=== PATIENT | male | born 1955 | race Caucasian/White ===

== ENCOUNTER 2016-12-24 14:21 | Emergency (ER) | payer OTHER ==
--- NOTE | 2016-12-24 14:39 | ED Physician Documentation ---
PD HPI DYSPNEA - Stated complaint Stated Complaint: SOA, L ARM TINGLING,L LEG TINGLING - Chief complaint Chief Complaint: Resp - History obtained from History obtained from: Patient - History of Present Illness Timing - onset: Other (61-year-old smoker with history of CHF, A. fib on warfarin presents with 2 weeks of progressive dyspnea that is worse when lying flat or exerting himself. Says he can only walk a few feet now without becoming dyspneic. Does have a mild cough but denies pedal edema. Among other things is currently taking 100 mg of torsemide a day.) Timing - onset during: Other (Starting last night developed some shooting and tingling pains in his left arm radiating to the left neck. No primary chest pain.) Review of Systems Ten Systems: 10 systems reviewed and negative Constitutional: denies: Fever, Chills Ears: denies: Loss of hearing, Ear pain Nose: denies: Rhinorrhea / runny nose, Congestion Throat: denies: Sore throat Cardiac: denies: Chest pain / pressure, Palpitations, Pedal edema, Calf pain Respiratory: reports: Dyspnea, Cough GI: denies: Abdominal Pain PD PAST MEDICAL HISTORY - Past Medical History Cardiovascular: Congestive heart failure, Hypertension, High cholesterol, [place], Atrial fibrillation Respiratory: COPD, Sleep apnea Neuro: Headache/migraine, Head injury Endocrine/Autoimmune: Type 2 diabetes GI: GERD : None HEENT: Chronic hearing loss Psych: Depression, Post traumatic stress disorder Musculoskeletal: Osteoarthritis Derm: None - Past Surgical History Past Surgical History: Yes General: Colonoscopy Ortho: Carpal Tunnel surgery, Other Cardiovascular: Cardiac catheterization HEENT: Tonsil/Adenoidectomy - Present Medications Home Medications: Ambulatory Orders Medication Instructions Recorded Confirmed Atenolol 25 mg PO DAILY 01/07/14 12/24/16 Atorvastatin Calcium [Lipitor] 80 mg PO QPM 01/07/14 12/24/16 Docusate Sodium 250 mg PO DAILY 01/07/14 12/24/16 Insulin Glargine,Hum.rec.anlog 65 unit QPM 01/07/14 12/24/16 [Lantus] Warfarin [Coumadin] 7.5 mg PO DAILY 01/08/14 12/24/16 Insulin Aspart [Novolog] 40 units SQ BID 02/06/15 12/24/16 oxyCODONE [Roxicodone] 10 mg PO Q4HR PRN 04/09/16 12/24/16 Cholecalciferol (Vitamin D3) 1,000 unit PO DAILY 12/24/16 12/24/16 [Vitamin D3] Citalopram Hydrobromide [Celexa] 20 mg PO DAILY 12/24/16 12/24/16 Ipratropium/Albuterol [Combivent 4 gm IH QID PRN 12/24/16 12/24/16 Respimat] Loratadine [Claritin] 10 mg PO DAILY 12/24/16 12/24/16 Magnesium Oxide [Magnesium] 400 mg PO DAILY 12/24/16 12/24/16 Psyllium [Metamucil] 1 each PO DAILY 12/24/16 12/24/16 Sildenafil Citrate [Viagra] 100 mg PO QPM PRN 12/24/16 12/24/16 Torsemide 100 mg PO DAILY 12/24/16 12/24/16 - Allergies Allergies/Adverse Reactions: Allergies Allergy/AdvReac Type Severity Reaction Status Date / Time codeine Allergy Respiratory Verified 12/24/16 14:28 omeprazole AdvReac Unknown Verified 12/24/16 14:35 - Social History Does the pt smoke?: Yes Smoking Status: Current every day smoker Does the pt drink ETOH?: Yes Does the pt have substance abuse?: Yes - Family History Family history: reports: Non contributory - POLST Patient has POLST: No PD ED PE NORMAL - Vitals Vital signs reviewed: Yes - General General: Alert and oriented X 3, No acute distress, Well developed/nourished - HEENT HEENT: PERRL, EOMI - Neck Neck: Supple, no meningeal sign, No bony TTP - Cardiac Cardiac: No murmur, Other (irregular) - Respiratory Respiratory: No respiratory distress, Other (Diminshed R base with rhonchi) - Abdomen Abdomen: Non tender - Back Back: No CVA TTP, No spinal TTP - Derm Derm: Normal color, Warm and dry - Extremities Extremities: No edema, No calf tenderness / cord - Neuro Neuro: Alert and oriented X 3, Normal speech - Psych Psych: Normal mood, Normal affect Results - Vitals Vitals: Vital Signs - 24 hr 12/24/16 12/24/16 12/24/16 14:24 15:10 15:53 Temperature 36.2 C L Heart Rate 78 72 75 Respiratory 23 24 24 Rate Blood Pressure 142/83 H 134/88 H 134/88 H O2 Saturation 100 98 94 Oxygen O2 Source [] Room air O2 Source [] Room air O2 Source Room air - EKG (time done) 1425 Rate: Rate (enter#) (69) Rhythm: Atrial fibrillation [place]: LAD Ischemia: Non specific changes. No: ST elevation c/w ischemia Compare to prior EKG: Unchanged from prior EKG (from 08/04/16) Computer interpretation: Agree with computer - Labs Labs: Laboratory Tests 12/24/16 12/24/16 12/24/16 14:25 14:25 14:25 WBC 8.0 RBC 4.14 L Hgb 11.7 L Hct 35.7 L MCV 86.2 MCH 28.3 MCHC 32.8 RDW 16.9 H Plt Count 213 MPV 7.6 Neut # 6.6 Lymph # 0.5 L [place] # 0.6 Eos # 0.3 Baso # 0.0 Absolute Nucleated RBC 0.00 Nucleated RBCs 0.0 PT 33.8 H INR 3.0 H Sodium 136 Potassium 4.2 Chloride 101 Carbon Dioxide 27 Anion Gap 8.0 BUN 45 H Creatinine 2.3 H Estimated GFR (MDRD) 29 L Glucose 256 H Calcium 8.6 Total Bilirubin 0.6 AST 36 ALT 42 Alkaline Phosphatase 84 Total Creatine Kinase 498 H CK-MB (CK-2) Troponin I B-Natriuretic Peptide Total Protein 6.9 Albumin 3.5 Globulin 3.4 Albumin/Globulin Ratio 1.0 Lipase 59 H 12/24/16 12/24/16 14:25 14:25 WBC RBC Hgb Hct MCV MCH MCHC RDW Plt Count MPV Neut # Lymph # [place] # Eos # Baso # Absolute Nucleated RBC Nucleated RBCs PT INR Sodium Potassium Chloride Carbon Dioxide Anion Gap BUN Creatinine Estimated GFR (MDRD) Glucose Calcium Total Bilirubin AST ALT Alkaline Phosphatase Total Creatine Kinase CK-MB (CK-2) 32.4 H Troponin I 0.12 B-Natriuretic Peptide 631 H Total Protein Albumin Globulin Albumin/Globulin Ratio Lipase - Rads (name of study) 2v chest Radiology: EMP read contemporaneously (New mild posterior right lower lobe opacity, could be pneumonia, dependent atelectasis or dependent edema. And new very small pleural effusions bilaterally.) PD MEDICAL DECISION MAKING - ED course ED course: This 61-year-old gentleman with history of CHF and A. fib on anticoagulation presents with progressive dyspnea and a pattern most consistent with CHF, also has abnormal sounds at the right base which is concerning for an acute pneumonia. There is possible evidence of pneumonia on chest x-ray this is treated with Rocephin and Zithromax. His BNP is slightly elevated over his usual as is his troponin. He was accepted to [facility]ology service by Dr. Jesse Seay at 430 p.m. Departure - Departure Disposition: 02 Transfer Acute Care Hosp Clinical Impression: CHF (congestive heart failure), Acute on chronic renal failure, Pneumonia
[2016-12-24 14:43] LABS: BASOPHILS % (AUTO) 0.5 %; EOSINOPHILS # (AUTO) 0.3 10^3/uL (0.0-0.7); EOSINOPHILS % (AUTO) 4.1 %; HCT - HEMATOCRIT 35.7 % (42.0-52.0); HGB - HEMOGLOBIN 11.7 g/dL (14.0-18.0); LYMPHOCYTES # (AUTO) 0.5 10^3/uL (1.5-3.5); LYMPHOCYTES % (AUTO) 5.8 %; MEAN CORPUSCULAR HEMOGLOBIN 28.3 pg (27.0-31.0); MEAN CORPUSCULAR HGB CONC 32.8 g/dL (32.0-36.0); MEAN CORPUSCULAR VOLUME 86.2 fL (80.0-94.0); MEAN PLATELET VOLUME 7.6 fL (7.4-11.4); MONOCYTES # (AUTO) 0.6 10^3/uL (0.0-1.0); MONOCYTES % (AUTO) 7.9 %; NEUTROPHILS # (AUTO) 6.6 10^3/uL (1.5-6.6); NEUTROPHILS % (AUTO) 81.7 %; RED BLOOD COUNT 4.14 10^6/uL (4.70-6.10); RED CELL DISTRIBUTION WIDTH 16.9 % (12.0-15.0)
[2016-12-24 14:49] LABS: PT - PROTHROMBIN TIME 33.8 secs (9.9-12.6)
[2016-12-24 14:52] LABS: BILIRUBIN,TOTAL 0.6 mg/dL (0.2-1.0); CALCIUM 8.6 mg/dL (8.5-10.3); CREATININE 2.3 mg/dL (0.6-1.2); POTASSIUM 4.2 mmol/L (3.5-5.0); TOTAL PROTEIN 6.9 g/dL (6.7-8.2)
--- NOTE | 2016-12-24 15:05 | XRAY Preliminary Report ---
Exam: XR Chest 2 View PA/LAT IMPRESSION: 1. New mild posterior right lower lobe opacity, differential including basilar pneumonia, dependent a telectasis or dependent edema. 2. New bilateral very small pleural effusions. [facility] SITE ID: [id number]
--- NOTE | 2016-12-24 15:07 | XRAY Report ---
EXAM: CHEST RADIOGRAPHY EXAM DATE: 12/24/2016 02:49 PM. CLINICAL HISTORY: Dyspnea, diminished R base. COMPARISON: 08/04/2016. TECHNIQUE: 2 views. FINDINGS: Lungs/Pleura: There is new minimal blunting of the posterior costophrenic angles. There is mild densi ty at the posterior right lung base obscuring the posterior diaphragm contour. The left lung is clear . Mediastinum: Heart size within normal limits. Trachea is midline. Negative for pneumothorax. Other: None. IMPRESSION: 1. New mild posterior right lower lobe opacity, differential including basilar pneumonia, dependent a telectasis or dependent edema. 2. New bilateral very small pleural effusions. [facility] Referring Provider Line: [phone] SITE ID: [id number]
[2016-12-24 15:08] LABS: TROPONIN I 0.12 ng/mL (<0.49)
[2016-12-24 15:10] LABS: CREATINE KINASE MB 32.4 ng/mL (0.6-6.3)
[2016-12-24] MEDS ORDERED: AZITHROMYCIN INJ 500 MG in SODIUM CHLORIDE 0.9% 250 ML IV STA (15:23)
[2016-12-24] MEDS ORDERED: cefTRIAXone 500 MG VIAL IVP STA (15:23)
[2016-12-24] MEDS ORDERED: NITROGLYCERIN 2% PASTE TOP STA (15:23)
[2016-12-24] MEDS ORDERED: SODIUM CHLORIDE 0.9% 1,000 ML IV ONE (15:23)
[2016-12-24] MEDS ORDERED: NITROGLYCERIN 2% PASTE TOP ONE (15:37)
[2016-12-24] MEDS ORDERED: cefTRIAXone 1 GM VIAL ONE (15:37)
[2016-12-24 20:00] VITALS: BP 138/89
== END 2016-12-24 20:05 | disposition short-term general hospital (02) ==
LOC: ED 14:21
DX: I11.0 Hypertensive heart disease with heart failure (principal); I50.9 Heart failure, unspecified; I48.91 Unspecified atrial fibrillation; Z79.01 Long term (current) use of anticoagulants; R94.31 Abnormal electrocardiogram [ECG] [EKG]; I25.2 Old myocardial infarction; E11.9 Type 2 diabetes mellitus without complications; Z79.4 Long term (current) use of insulin; J44.9 Chronic obstructive pulmonary disease, unspecified; E78.00 Pure hypercholesterolemia, unspecified; K21.9 Gastro-esophageal reflux disease without esophagitis; M19.90 Unspecified osteoarthritis, unspecified site; F17.200 Nicotine dependence, unspecified, uncomplicated
CPT/HCPCS: 36415; 71020; 80053; 82550; 82553; 83690; 83880; 84484; 85025; 85610; 93005; 93010; 96365; 96375; 99285; A9270

== ENCOUNTER 2017-02-21 10:06 | Inpatient (IN) | payer OTHER ==
[2017-02-21] MEDS ORDERED: SODIUM CHLORIDE 0.9% 1,000 ML IV ONE ×2 (11:03→13:12)
[2017-02-21 11:16] LABS: BASOPHILS # (AUTO) 0.1 10^3/uL (0.0-0.1); BASOPHILS % (AUTO) 0.5 %; EOSINOPHILS # (AUTO) 0.3 10^3/uL (0.0-0.7); HCT - HEMATOCRIT 48.7 % (42.0-52.0); HGB - HEMOGLOBIN 16.3 g/dL (14.0-18.0); LYMPHOCYTES % (AUTO) 7.8 %; MEAN CORPUSCULAR HEMOGLOBIN 27.1 pg (27.0-31.0); MEAN CORPUSCULAR HGB CONC 33.5 g/dL (32.0-36.0); MEAN PLATELET VOLUME 7.7 fL (7.4-11.4); MONOCYTES # (AUTO) 1.1 10^3/uL (0.0-1.0); NEUTROPHILS # (AUTO) 10.1 10^3/uL (1.5-6.6); NEUTROPHILS % (AUTO) 80.7 %; RED BLOOD COUNT 6.01 10^6/uL (4.70-6.10); RED CELL DISTRIBUTION WIDTH 16.1 % (12.0-15.0); UNCORRECTED WHITE BLOOD COUNT 12.5 x10^3/uL; WHITE BLOOD COUNT 12.5 x10^3/uL (4.8-10.8)
[2017-02-21 11:48] LABS: ALBUMIN/GLOBULIN RATIO 0.9 (1.0-2.2); BILIRUBIN,TOTAL 0.7 mg/dL (0.2-1.0); CREATININE 1.9 mg/dL (0.6-1.2); POTASSIUM 3.5 mmol/L (3.5-5.0); TOTAL PROTEIN 9.1 g/dL (6.7-8.2)
--- NOTE | 2017-02-21 11:50 | ED Physician Documentation ---
History of Present Illness - Stated complaint Stated Complaint: STOMACH PAIN - Chief complaint Chief Complaint: Abd Pain - History obtained from History obtained from: Patient - History of Present Illness Timing: How many weeks ago (1) - Additonal information Additional information: 61-year-old male on diuretics with history of congestive heart failure has not been feeling well for the past 1 week. He complains of some intermittent abdominal pain weakness. He complains of some intermittent abdominal pain weakness and decreased appetite. He is a poor historian and does not elaborate. This is similar to what he has had about 1 1/2 years ago. Review of Systems Constitutional: reports: Chills, Fatigue. denies: Fever Eyes: denies: Decreased vision Ears: denies: Ear pain Nose: denies: Rhinorrhea / runny nose, Congestion Throat: denies: Dental pain / toothache, Sore throat Cardiac: denies: Chest pain / pressure Respiratory: reports: Cough. denies: Dyspnea GI: reports: Abdominal Pain, Nausea, Constipation. denies: Vomiting : denies: Dysuria, Frequency Skin: denies: Rash Musculoskeletal: reports: Extremity pain. denies: Neck pain, Extremity swelling Neurologic: reports: Generalized weakness, Headache. denies: Focal weakness, Numbness, Head injury, LOC PD PAST MEDICAL HISTORY - Past Medical History Cardiovascular: Congestive heart failure, Hypertension, High cholesterol, [place], Atrial fibrillation Respiratory: COPD, Sleep apnea Neuro: Headache/migraine, Head injury Endocrine/Autoimmune: Type 2 diabetes GI: GERD : None HEENT: Chronic hearing loss Psych: Depression, Post traumatic stress disorder Musculoskeletal: Osteoarthritis Derm: None - Past Surgical History Past Surgical History: Yes General: Colonoscopy Ortho: Carpal Tunnel surgery, Other Cardiovascular: Cardiac catheterization HEENT: Tonsil/Adenoidectomy - Present Medications Home Medications: Ambulatory Orders Medication Instructions Recorded Confirmed Atenolol 25 mg PO DAILY 01/07/14 02/21/17 Docusate Sodium 250 mg PO DAILY 01/07/14 02/21/17 oxyCODONE [Roxicodone] 10 mg PO Q4HR PRN 04/09/16 02/21/17 Cholecalciferol (Vitamin D3) 1,000 unit PO DAILY 12/24/16 02/21/17 [Vitamin D3] Citalopram Hydrobromide [Celexa] 20 mg PO DAILY 12/24/16 02/21/17 Ipratropium/Albuterol [Combivent 1 puffs INH QID 12/24/16 02/21/17 Respimat] Loratadine [Claritin] 10 mg PO DAILY 12/24/16 02/21/17 Psyllium [Metamucil] 1 each PO DAILY 12/24/16 02/21/17 Sildenafil Citrate [Viagra] 100 mg PO QPM PRN 12/24/16 02/21/17 Atorvastatin Calcium [Lipitor] 80 mg PO QPM 02/21/17 02/21/17 Bumetanide 2 mg PO QPM 02/21/17 02/21/17 Bumetanide 4 mg PO DAILY 02/21/17 02/21/17 Dextrose [Trueplus Glucose] 4 gm PO QID PRN 02/21/17 02/21/17 Insulin Aspart [NovoLOG] 10 unit SUBQ BIDWM 02/21/17 02/21/17 Insulin Glargine [Lantus Solostar] 55 unit SUBQ QPM 02/21/17 02/21/17 Magnesium Oxide 420 mg PO DAILYWM 02/21/17 02/21/17 Spironolactone [Aldactone] 25 mg PO DAILY 02/21/17 02/21/17 Warfarin [Coumadin] 5 mg PO MOWEFR@1700 02/21/17 02/21/17 Warfarin [Coumadin] 7.5 mg PO SUTUTHSA@1700 02/21/17 02/21/17 metOLazone [Zaroxolyn] 2.5 mg PO DAILY 02/21/17 02/21/17 - Allergies Allergies/Adverse Reactions: Allergies Allergy/AdvReac Type Severity Reaction Status Date / Time codeine Allergy Respiratory Verified 02/21/17 10:17 omeprazole AdvReac Unknown Verified 02/21/17 10:17 - Social History Does the pt smoke?: Yes Smoking Status: Current every day smoker Does the pt drink ETOH?: Yes Does the pt have substance abuse?: Yes - Immunizations Immunizations are current?: No Immunizations: TDAP >10years/unknown - POLST Patient has POLST: No PD ED PE NORMAL - Vitals Vital signs reviewed: Yes - HEENT HEENT: Atraumatic, PERRL, EOMI, Other (dry mucous membranes) - Neck Neck: Supple, no meningeal sign - Cardiac Cardiac: RRR, Other (2/6 holosystolic murmer at LSB) - Respiratory Respiratory: No respiratory distress, Clear bilaterally - Abdomen Abdomen: Soft, Non tender - Back Back: No CVA TTP, No spinal TTP - Derm Derm: Normal color, Warm and dry, No rash - Extremities Extremities: No deformity, No edema - Neuro Neuro: No motor deficit, No sensory deficit - Psych Psych: Normal mood, Normal affect Results - Vitals Vitals: Vital Signs - 24 hr 02/21/17 02/21/17 10:13 12:20 Temperature 35.6 C L Heart Rate 70 74 Respiratory 16 20 Rate Blood Pressure 111/76 118/74 O2 Saturation 96 Oxygen O2 Source [With Activity] Room air O2 Source [Without Activity] Room air O2 Source Room air - Labs Labs: Laboratory Tests 02/21/17 02/21/17 02/21/17 11:07 11:07 11:07 WBC 12.5 H RBC 6.01 Hgb 16.3 Hct 48.7 MCV 81.0 MCH 27.1 MCHC 33.5 RDW 16.1 H Plt Count 345 MPV 7.7 Neut # 10.1 H Lymph # 1.0 L [place] # 1.1 H Eos # 0.3 Baso # 0.1 Absolute Nucleated RBC 0.00 Nucleated RBCs 0.0 PT INR Sodium 130 L Potassium 3.5 Chloride 80 L* Carbon Dioxide 34 H Anion Gap 16.0 H BUN 121 H* Creatinine 1.9 H Estimated GFR (MDRD) 36 L Glucose 194 H Calcium 10.0 Total Bilirubin 0.7 AST 50 H ALT 45 Alkaline Phosphatase 125 H Troponin I 0.16 B-Natriuretic Peptide Total Protein 9.1 H Albumin 4.2 Globulin 4.9 H Albumin/Globulin Ratio 0.9 L Lipase 43 Urine Color Urine Clarity Urine pH Ur Specific [place] Urine Protein Urine Glucose (UA) Urine Ketones Urine Occult Blood Urine Nitrite Urine Bilirubin Urine Urobilinogen Ur Leukocyte Esterase Urine RBC Urine WBC Ur Squamous Epith Cells Urine Bacteria Urine Casts Ur Microscopic Review Urine Culture Comments 02/21/17 02/21/17 02/21/17 11:07 11:10 12:40 WBC RBC Hgb Hct MCV MCH MCHC RDW Plt Count MPV Neut # Lymph # [place] # Eos # Baso # Absolute Nucleated RBC Nucleated RBCs PT 15.3 H INR 1.4 H Sodium Potassium Chloride Carbon Dioxide Anion Gap BUN Creatinine Estimated GFR (MDRD) Glucose Calcium Total Bilirubin AST ALT Alkaline Phosphatase Troponin I B-Natriuretic Peptide 251 H Total Protein Albumin Globulin Albumin/Globulin Ratio Lipase Urine Color YELLOW Urine Clarity CLEAR Urine pH 6.5 Ur Specific [place] 1.010 Urine Protein 30 H Urine Glucose (UA) NEGATIVE Urine Ketones NEGATIVE Urine Occult Blood TRACE-INTA Urine Nitrite NEGATIVE Urine Bilirubin NEGATIVE Urine Urobilinogen 0.2 (NORMAL) Ur Leukocyte Esterase NEGATIVE Urine RBC 0-5 Urine WBC 0-3 Ur Squamous Epith Cells RARE Squamous Urine Bacteria Rare Urine Casts 0-2 Hyaline Casts Ur Microscopic Review INDICATED Urine Culture Comments NOT INDICATED - Rads (name of study) Acute abdomen Radiology: Prelim report reviewed (Impression: 1. No acute cardiopulmonary process.2. Bowel gas pattern within normal limits.), EMP read indepedently, See rad report Procedures - IVC sono (time) 1100 Bedside IVC sono: IVC measures (cm) (1.21), IVC collapsed c insp (cm) (complete) , Dehydration PD MEDICAL DECISION MAKING - ED course Complexity details: reviewed old records, reviewed results, re-evaluated patient , considered differential, d/w patient ED course: 61-year-old male with history of atrial fibrillation CHF and diabetes has developed acute renal failure and is profoundly dehydrated. Here in the emergency department we have begun IV saline and Dr. Alec Mitchell is consulted in the case and care for the patient in the hospital. The patient has had similar episode approximately 1-1/2 years ago. Departure - Departure Disposition: [facility] DC/Xfer Clinical Impression: Acute on chronic renal failure, Dehydration Discharge Date/Time: 02/21/17 14:34
--- NOTE | 2017-02-21 12:13 | XRAY Preliminary Report ---
Exam: XR Abdomen Acute IMPRESSION: 1. No acute cardiopulmonary process. 2. Bowel gas pattern within normal limits. [facility] SITE ID: [id number]
--- NOTE | 2017-02-21 12:15 | XRAY Report ---
EXAM: ABDOMINAL SERIES AND PA CHEST EXAM DATE: 02/21/2017 11:36 AM. CLINICAL HISTORY: Abd pain diffuse ? Constipation CHF compensated. COMPARISON: None. TECHNIQUE: 2 views abdomen and 1 view chest. FINDINGS: CHEST: The heart size appears normal. No pulmonary consolidation or edema. Gas and stool throughout the colo n and rectum. No abnormally dilated bowel loops. IMPRESSION: 1. No acute cardiopulmonary process. 2. Bowel gas pattern within normal limits. [facility] Referring Provider Line: [phone] SITE ID: [id number]
[2017-02-21 12:50] LABS: BILIRUBIN,URINE NEGATIVE (NEGATIVE); PH,URINE 6.5 PH (5.0-7.5)
[2017-02-21 12:58] LABS: UA w/ MICROSCOPIC CHARGE YES; WBC,URINE 0-3 /HPF (0-3)
[2017-02-21 12:59] LABS: UR CULTURE IF IND NOT INDICATED
[2017-02-21 13:46] LABS: INR 1.4 (0.8-1.2); PT - PROTHROMBIN TIME 15.3 secs (9.9-12.6)
[2017-02-21] MEDS ORDERED: ONDANSETRON 4 MG/2 ML VIAL IVP PRN (14:06)
[2017-02-21] MEDS ORDERED: SODIUM CHLORIDE FLUSH 0.9% 10 ML SYRINGE IVP PRN (14:06)
[2017-02-21] MEDS ORDERED: SILDENAFIL CITRATE 100 MG PO PRN (14:22)
[2017-02-21] MEDS: SODIUM CHLORIDE 0.9% 1,000 ML IV SCH (14:40)
[2017-02-21] MEDS ORDERED: WARFARIN 5 MG TABLET PO ONE (16:00)
[2017-02-21] MEDS: oxyCODONE 5 MG TABLET PO PRN ×2 (16:40→22:16)
[2017-02-21] MEDS ORDERED: INSULIN ASPART 300 UNIT/3 ML PEN SUBQ SCH ×3 (17:00→21:00)
[2017-02-21] MEDS: INSULIN ASPART 300 UNIT/3 ML PEN SUBQ SCH ×3 (17:24→20:35)
[2017-02-21 19:33] LABS: HEMOGLOBIN A1C 1.93 g/dL
[2017-02-21] MEDS: INSULIN GLARGINE 300 UNIT/3 ML PEN SUBQ SCH (20:33)
[2017-02-21] MEDS: DOCUSATE SODIUM 250 MG CAPSULE PO SCH (20:38)
[2017-02-21] MEDS: ATORVASTATIN 40 MG TABLET PO SCH (20:38)
[2017-02-21] MEDS: SODIUM CHLORIDE FLUSH 0.9% 10 ML SYRINGE IVP SCH (20:38)
[2017-02-22] MEDS: SODIUM CHLORIDE 0.9% 1,000 ML IV SCH ×2 (00:39→10:47)
[2017-02-22] MEDS: oxyCODONE 5 MG TABLET PO PRN ×4 (02:20→20:47)
[2017-02-22 05:19] LABS: BASOPHILS % (AUTO) 0.6 %; EOSINOPHILS # (AUTO) 0.4 10^3/uL (0.0-0.7); HCT - HEMATOCRIT 40.6 % (42.0-52.0); HGB - HEMOGLOBIN 13.8 g/dL (14.0-18.0); LYMPHOCYTES # (AUTO) 1.1 10^3/uL (1.5-3.5); LYMPHOCYTES % (AUTO) 14.7 %; MEAN CORPUSCULAR HEMOGLOBIN 28.3 pg (27.0-31.0); MEAN PLATELET VOLUME 7.8 fL (7.4-11.4); MONOCYTES # (AUTO) 0.7 10^3/uL (0.0-1.0); MONOCYTES % (AUTO) 9.4 %; NEUTROPHILS # (AUTO) 5.2 10^3/uL (1.5-6.6); NEUTROPHILS % (AUTO) 70.3 %; RED BLOOD COUNT 4.89 10^6/uL (4.70-6.10); RED CELL DISTRIBUTION WIDTH 15.7 % (12.0-15.0); UNCORRECTED WHITE BLOOD COUNT 7.3 x10^3/uL; WHITE BLOOD COUNT 7.3 x10^3/uL (4.8-10.8)
[2017-02-22 05:48] LABS: ALBUMIN/GLOBULIN RATIO 0.9 (1.0-2.2); BILIRUBIN,TOTAL 0.5 mg/dL (0.2-1.0); CALCIUM 8.5 mg/dL (8.5-10.3); CREATININE 1.6 mg/dL (0.6-1.2); POTASSIUM 3.3 mmol/L (3.5-5.0); TOTAL PROTEIN 6.6 g/dL (6.7-8.2)
[2017-02-22] MEDS: SODIUM CHLORIDE FLUSH 0.9% 10 ML SYRINGE IVP SCH ×3 (06:48→20:45)
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
[2017-02-22] MEDS: INSULIN ASPART 300 UNIT/3 ML PEN SUBQ SCH ×7 (08:39→20:41)
[2017-02-22] MEDS: ATENOLOL 25 MG TABLET PO SCH (08:40)
[2017-02-22] MEDS: LORATADINE 10 MG TABLET PO SCH (08:40)
[2017-02-22] MEDS: DOCUSATE SODIUM 250 MG CAPSULE PO SCH ×2 (08:40→20:44)
[2017-02-22] MEDS: CHOLECALCIFEROL 1,000 UNIT TABLET PO SCH (08:40)
[2017-02-22] MEDS: MAGNESIUM OXIDE 400 MG TABLET PO SCH (08:40)
[2017-02-22] MEDS: CITALOPRAM 10 MG TABLET PO SCH (08:41)
[2017-02-22] MEDS: POLYETHYLENE GLYCOL 3350 17 GM PACKET PO SCH (08:41)
[2017-02-22] MEDS ORDERED: POTASSIUM CHLORIDE 20 MEQ TABLET PO ONE (09:45)
[2017-02-22 10:13] LABS: INR 1.6 (0.8-1.2); PT - PROTHROMBIN TIME 18.5 secs (9.9-12.6)
--- NOTE | 2017-02-22 15:12 | PROVIDER PROGRESS NOTE ---
Subjective - Prog Note Date Prog Note Date: 02/22/17 Prog Note Time: 14:13 - Subjective Pt reports feeling: Improved Current Medications - Current Medications Current Medications: Active Medications Atenolol (Tenormin) 25 mg PO DAILY [facility] Last Admin: 02/22/17 08:40 Dose: 25 mg Atorvastatin Calcium (Lipitor) 80 mg PO QPM [facility] Last Admin: 02/21/17 20:38 Dose: 80 mg Cholecalciferol (Vitamin D3) 1,000 unit PO DAILY [facility] Last Admin: 02/22/17 08:40 Dose: 1,000 unit Citalopram Hydrobromide (Celexa) 20 mg PO DAILY [facility] Last Admin: 02/22/17 08:41 Dose: 20 mg Docusate Sodium (Colace 250mg Capsule) 250 mg PO BID [facility] Last Admin: 02/22/17 08:40 Dose: 250 mg Sodium Chloride (Normal Saline 0.9%) 1,000 mls @ 100 mls/hr IV .Q10H [facility] Last Admin: 02/22/17 10:47 Dose: 100 mls/hr Insulin Aspart (Novolog) 1 - 9 unit SUBQ 0800,1200,1700,2100 [facility] PRN Reason: Protocol Last Admin: 02/22/17 11:41 Dose: 9 unit Insulin Aspart (Novolog) 10 unit SUBQ TIDWM [facility] Last Admin: 02/22/17 11:42 Dose: 10 unit Insulin Glargine (Lantus Solostar) 55 unit SUBQ QPM [facility] Last Admin: 02/21/17 20:33 Dose: 55 unit Loratadine (Claritin) 10 mg PO DAILY [facility] Last Admin: 02/22/17 08:40 Dose: 10 mg Magnesium Oxide (Mag Ox) 400 mg PO DAILYWM [facility] Last Admin: 02/22/17 08:40 Dose: 400 mg Ondansetron HCl (Zofran Inj) 4 mg IVP Q6HR PRN PRN Reason: Nausea / Vomiting Oxycodone HCl (Roxicodone) 10 mg PO Q4HR PRN PRN Reason: Analgesia Last Admin: 02/22/17 12:50 Dose: 10 mg Polyethylene Glycol (Miralax) 17 gm PO DAILY [facility] Last Admin: 02/22/17 08:41 Dose: 17 gm Sodium Chloride (Normal Saline Flush 0.9%) 10 ml IVP PRN PRN PRN Reason: NEEDED PER PROVIDER ORDERS Sodium Chloride (Normal Saline Flush 0.9%) 10 ml IVP Q8HR [facility] Last Admin: 02/22/17 13:25 Dose: Not Given Warfarin Sodium (Coumadin) 7.5 mg PO ONCE ONE Stop: 02/22/17 16:01 Atenolol 25 mg PO DAILY 01/07/14 Docusate Sodium 250 mg PO DAILY 01/07/14 oxyCODONE [Roxicodone] 10 mg PO Q4HR PRN 04/09/16 Cholecalciferol (Vitamin D3) [Vitamin D3] 1,000 unit PO DAILY 12/24/16 Citalopram Hydrobromide [Celexa] 20 mg PO DAILY 12/24/16 Ipratropium/Albuterol [Combivent Respimat] 1 puffs INH QID 12/24/16 Loratadine [Claritin] 10 mg PO DAILY 12/24/16 Psyllium [Metamucil] 1 each PO DAILY 12/24/16 Sildenafil Citrate [Viagra] 100 mg PO QPM PRN 12/24/16 Atorvastatin Calcium [Lipitor] 80 mg PO QPM 02/21/17 Bumetanide 2 mg PO QPM 02/21/17 Bumetanide 4 mg PO DAILY 02/21/17 Dextrose [Trueplus Glucose] 4 gm PO QID PRN 02/21/17 Insulin Aspart [NovoLOG] 10 unit SUBQ BIDWM 02/21/17 Insulin Glargine [Lantus Solostar] 55 unit SUBQ QPM 02/21/17 Magnesium Oxide 420 mg PO DAILYWM 02/21/17 Spironolactone [Aldactone] 25 mg PO DAILY 02/21/17 Warfarin [Coumadin] 5 mg PO MOWEFR@1700 02/21/17 Warfarin [Coumadin] 7.5 mg PO SUTUTHSA@1700 02/21/17 metOLazone [Zaroxolyn] 2.5 mg PO DAILY 02/21/17 Objective - Vital Signs/Intake & Output Reviewed Vital Signs: Yes Vital Signs: Vital Signs x48h Temp Pulse Resp BP Pulse Ox 02/22/17 08:31 36.8 C 65 18 116/70 96 Intake & Output: Intake & Output 02/19/17 02/20/17 02/21/17 02/22/17 23:59 23:59 23:59 23:59 Intake Total 1400 2926 Output Total 475 1900 Balance 925 1026 - Objective General Appearance: positive: No acute distress, Alert Eyes Bilateral: positive: Normal inspection ENT: positive: No signs of dehydration Neck: positive: No JVD Respiratory: positive: Chest non-tender, No respiratory distress, Breath sounds nml. negative: Wheezes, Rales, Rhonchi Cardiovascular: positive: Irregularly irregular. negative: Tachycardia Peripheral Pulses: 2+ Radial (R), 2+ Radial (L) Abdomen: positive: Non-tender, Nml bowel sounds, No distention Skin: positive: Color nml, Warm, Dry. negative: Skin rash Extremities: positive: Non-tender, Full ROM, Nml appearance. negative: Pedal edema, Calf tenderness, Joint swelling Neurologic/Psychiatric: positive: Oriented x3, Motor nml, Sensation nml, Mood/ affect nml. negative: Weakness - Lab Results Fish Bones: 02/22/17 05:01 02/22/17 05:01 Other Labs: Lab Results x24hrs 02/22/17 02/22/17 02/22/17 Range/Units 11:36 10:00 09:40 WBC (4.8-10.8) x10^3/uL RBC (4.70-6.10) 10^6/uL Hgb (14.0-18.0) g/dL Hct (42.0-52.0) % MCV (80.0-94.0) fL MCH (27.0-31.0) pg MCHC (32.0-36.0) g/dL RDW (12.0-15.0) % Plt Count (130-450) 10^3/uL MPV (7.4-11.4) fL Neut # (1.5-6.6) 10^3/uL Lymph # (1.5-3.5) 10^3/uL Independence # (0.0-1.0) 10^3/uL Eos # (0.0-0.7) 10^3/uL Baso # (0.0-0.1) 10^3/uL Absolute Nucleated RBC x10^3/uL Nucleated RBCs /100WBC PT 18.5 H (9.9-12.6) secs INR 1.6 H (0.8-1.2) Sodium (135-145) mmol/L Potassium (3.5-5.0) mmol/L Chloride (101-111) mmol/L Carbon Dioxide (21-32) mmol/L Anion Gap (6-13) BUN (6-20) mg/dL Creatinine (0.6-1.2) mg/dL Estimated GFR (MDRD) (>89) Glucose (70-100) mg/dL POC Whole Bld Glucose 346 H (70 - 100) mg/dL Calcium (8.5-10.3) mg/dL Total Bilirubin (0.2-1.0) mg/dL AST (10-42) IU/L ALT (10-60) IU/L Alkaline Phosphatase (42-121) IU/L Total Creatine Kinase 192 (22-269) IU/L Troponin I (<0.49) ng/mL Total Protein (6.7-8.2) g/dL Albumin (3.2-5.5) g/dL Globulin (2.1-4.2) g/dL Albumin/Globulin Ratio (1.0-2.2) Ethyl Alcohol mg/dL 02/22/17 02/22/17 02/22/17 Range/Units 07:40 05:01 05:01 WBC 7.3 (4.8-10.8) x10^3/uL RBC 4.89 (4.70-6.10) 10^6/uL Hgb 13.8 L (14.0-18.0) g/dL Hct 40.6 L (42.0-52.0) % MCV 83.0 (80.0-94.0) fL MCH 28.3 (27.0-31.0) pg MCHC 34.0 (32.0-36.0) g/dL RDW 15.7 H (12.0-15.0) % Plt Count 231 (130-450) 10^3/uL MPV 7.8 (7.4-11.4) fL Neut # 5.2 (1.5-6.6) 10^3/uL Lymph # 1.1 L (1.5-3.5) 10^3/uL Independence # 0.7 (0.0-1.0) 10^3/uL Eos # 0.4 (0.0-0.7) 10^3/uL Baso # 0.0 (0.0-0.1) 10^3/uL Absolute Nucleated RBC 0.00 x10^3/uL Nucleated RBCs 0.0 /100WBC PT (9.9-12.6) secs INR (0.8-1.2) Sodium 133 L (135-145) mmol/L Potassium 3.3 L (3.5-5.0) mmol/L Chloride 93 L (101-111) mmol/L Carbon Dioxide 30 (21-32) mmol/L Anion Gap 10.0 (6-13) BUN 100 H* (6-20) mg/dL Creatinine 1.6 H (0.6-1.2) mg/dL Estimated GFR (MDRD) 44 L (>89) Glucose 280 H (70-100) mg/dL POC Whole Bld Glucose 212 H (70 - 100) mg/dL Calcium 8.5 (8.5-10.3) mg/dL Total Bilirubin 0.5 (0.2-1.0) mg/dL AST 37 (10-42) IU/L ALT 31 (10-60) IU/L Alkaline Phosphatase 88 (42-121) IU/L Total Creatine Kinase (22-269) IU/L Troponin I (<0.49) ng/mL Total Protein 6.6 L (6.7-8.2) g/dL Albumin 3.1 L (3.2-5.5) g/dL Globulin 3.5 (2.1-4.2) g/dL Albumin/Globulin Ratio 0.9 L (1.0-2.2) Ethyl Alcohol mg/dL 02/22/17 02/21/17 02/21/17 Range/Units 00:07 20:29 17:40 WBC (4.8-10.8) x10^3/uL RBC (4.70-6.10) 10^6/uL Hgb (14.0-18.0) g/dL Hct (42.0-52.0) % MCV (80.0-94.0) fL MCH (27.0-31.0) pg MCHC (32.0-36.0) g/dL RDW (12.0-15.0) % Plt Count (130-450) 10^3/uL MPV (7.4-11.4) fL Neut # (1.5-6.6) 10^3/uL Lymph # (1.5-3.5) 10^3/uL Independence # (0.0-1.0) 10^3/uL Eos # (0.0-0.7) 10^3/uL Baso # (0.0-0.1) 10^3/uL Absolute Nucleated RBC x10^3/uL Nucleated RBCs /100WBC PT (9.9-12.6) secs INR (0.8-1.2) Sodium (135-145) mmol/L Potassium (3.5-5.0) mmol/L Chloride (101-111) mmol/L Carbon Dioxide (21-32) mmol/L Anion Gap (6-13) BUN (6-20) mg/dL Creatinine (0.6-1.2) mg/dL Estimated GFR (MDRD) (>89) Glucose (70-100) mg/dL POC Whole Bld Glucose 541 H* (70 - 100) mg/dL Calcium (8.5-10.3) mg/dL Total Bilirubin (0.2-1.0) mg/dL AST (10-42) IU/L ALT (10-60) IU/L Alkaline Phosphatase (42-121) IU/L Total Creatine Kinase (22-269) IU/L Troponin I 0.15 0.14 (<0.49) ng/mL Total Protein (6.7-8.2) g/dL Albumin (3.2-5.5) g/dL Globulin (2.1-4.2) g/dL Albumin/Globulin Ratio (1.0-2.2) Ethyl Alcohol mg/dL 02/21/17 02/21/17 Range/Units 16:38 14:26 WBC (4.8-10.8) x10^3/uL RBC (4.70-6.10) 10^6/uL Hgb (14.0-18.0) g/dL Hct (42.0-52.0) % MCV (80.0-94.0) fL MCH (27.0-31.0) pg MCHC (32.0-36.0) g/dL RDW (12.0-15.0) % Plt Count (130-450) 10^3/uL MPV (7.4-11.4) fL Neut # (1.5-6.6) 10^3/uL Lymph # (1.5-3.5) 10^3/uL Independence # (0.0-1.0) 10^3/uL Eos # (0.0-0.7) 10^3/uL Baso # (0.0-0.1) 10^3/uL Absolute Nucleated RBC x10^3/uL Nucleated RBCs /100WBC PT (9.9-12.6) secs INR (0.8-1.2) Sodium (135-145) mmol/L Potassium (3.5-5.0) mmol/L Chloride (101-111) mmol/L Carbon Dioxide (21-32) mmol/L Anion Gap (6-13) BUN (6-20) mg/dL Creatinine (0.6-1.2) mg/dL Estimated GFR (MDRD) (>89) Glucose (70-100) mg/dL POC Whole Bld Glucose 380 H (70 - 100) mg/dL Calcium (8.5-10.3) mg/dL Total Bilirubin (0.2-1.0) mg/dL AST (10-42) IU/L ALT (10-60) IU/L Alkaline Phosphatase (42-121) IU/L Total Creatine Kinase (22-269) IU/L Troponin I (<0.49) ng/mL Total Protein (6.7-8.2) g/dL Albumin (3.2-5.5) g/dL Globulin (2.1-4.2) g/dL Albumin/Globulin Ratio (1.0-2.2) Ethyl Alcohol < 5.0 mg/dL Assessment/Plan - Problem List (1) Acute on chronic renal failure Impression: (1) Metabolic acidosis due to volume contraction and over-diuresis. P/w weakness, fatigue. Evidenced by his low sodium, low chloride, elevated hgb , protein and albumin. In ER given 1L NS and continued NS @100. Weight up from 87kg to 90.3kg today. Lungs remain clear. Electrolytes returning to normal range. Anion gap 16 down to 10. -NS @ 100 -Daily weight, dry weight is 206 per cardiology note -Carb control diet (2) ISABELA with elevated BUN Last labs in 01/2017 with creat 1.8, BUN 54. Was 1.9/121 on admit. Likely acute kidney injury and uremia secondary to over-diuresis. With Coumadin, GIB less likely with negative hemoccult. -Hold diuretics -Trend labs -Avoid nephrotoxic agents (3) Elevated AST and alkaline phosphatase (resolved) Likely elevated due to his over-diuresis and stress. No elevation in past. No history of liver disease reported. CT abdomen and pelvic June 2015 without liver disease. AST and alk phos now WNL after hydration. (4) Leukocytosis (resolved) On admission WBC 12.5, no evidence of infection, no pulmonary infiltrate, or urinary tract infection. He has constipation but no evidence of intra-abdominal infection. WBC now 7.3 with hydration only. (5) Constipation Acute on chronic constipation related to opioid use and inactivity. Likely acutely worsened by his dehydration. Had small hard BM this AM -Encourage PO intake -Colace and Miralax (6) Hypertension Normotensive in spite of his dehydration. -Continue atenolol -Monitor blood pressure routinely, titrate or hold this medication as needed. Parameters have been set to prevent hypertension. (7) Chronic atrial fibrillation with long-term anticoagulation on Coumadin No reports of melena or hematochezia. Subtherapeutic INR 1.4, given 7.5mg yesterday and now 1.6. HR controlled. -Coumadin 7.5mg today, INR in AM -Continue atenolol for rate control (8) Type 2 diabetes mellitus Complicated by neuropathy and nephropathy. On bed bug exterminator insulin use. Inconsistent diet at home. Labile BGs. -Lantus 55 units at bedtime -Novolog 10 units subcu TIDWM -Low dose sliding scale insulin. Will check hemoglobin A1c and have hypoglycemia protocol available as needed. (9) Post traumatic stress disorder and depression The patient's mood is currently stable. He is unsure why this is happening again , hopeful that he will recover similar to last event. -Continue Celexa (10) Hyperlipidemia No previous lipid panel available for review. -Continue his statin during admission. DC Planning: Home once BUN improved and weight closer to 200lbs and . Arrange f /u with PCP within 1week.
[2017-02-22] MEDS ORDERED: WARFARIN 5 MG TABLET PO ONE (16:00)
[2017-02-22] MEDS: MAGNESIUM HYDROXIDE 2,400 MG/30 ML UDC PO PRN (18:04)
[2017-02-22] MEDS: INSULIN GLARGINE 300 UNIT/3 ML PEN SUBQ SCH (20:42)
[2017-02-22] MEDS: SENNA 8.6 MG TABLET PO PRN (20:44)
[2017-02-22] MEDS: ATORVASTATIN 40 MG TABLET PO SCH (20:44)
[2017-02-23] MEDS: oxyCODONE 5 MG TABLET PO PRN ×3 (00:57→11:30)
[2017-02-23] MEDS: SODIUM CHLORIDE FLUSH 0.9% 10 ML SYRINGE IVP SCH ×2 (05:53→13:04)
[2017-02-23 06:33] LABS: BILIRUBIN,TOTAL 0.4 mg/dL (0.2-1.0); CALCIUM 8.9 mg/dL (8.5-10.3); CREATININE 1.1 mg/dL (0.6-1.2); POTASSIUM 3.6 mmol/L (3.5-5.0); TOTAL PROTEIN 6.7 g/dL (6.7-8.2)
[2017-02-23 06:43] LABS: INR 1.6 (0.8-1.2); PT - PROTHROMBIN TIME 18.5 secs (9.9-12.6)
[2017-02-23] MEDS: INSULIN ASPART 300 UNIT/3 ML PEN SUBQ SCH ×4 (07:55→11:36)
[2017-02-23] MEDS: POLYETHYLENE GLYCOL 3350 17 GM PACKET PO SCH (08:04)
[2017-02-23] MEDS: SENNA 8.6 MG TABLET PO PRN (08:04)
[2017-02-23] MEDS: CHOLECALCIFEROL 1,000 UNIT TABLET PO SCH (08:06)
[2017-02-23] MEDS: CITALOPRAM 10 MG TABLET PO SCH (08:06)
[2017-02-23] MEDS: DOCUSATE SODIUM 250 MG CAPSULE PO SCH (08:07)
[2017-02-23] MEDS: MAGNESIUM OXIDE 400 MG TABLET PO SCH (08:07)
[2017-02-23] MEDS: ATENOLOL 25 MG TABLET PO SCH (08:07)
[2017-02-23] MEDS: LORATADINE 10 MG TABLET PO SCH (08:07)
--- NOTE | 2017-02-23 11:03 | Discharge Plan ---
Discharge Plan Disposition: 01 Home, Self Care Condition: Good Diet: Cardiac (low salt, 2L fluid restriction daily) Activity Restrictions: Activity as Tolerated Additional Instructions or Follow Up instructions: You were admitted to the hospital for dehydration due to your diuretics for heart failure. You were given IV fluids until your BUN improved and weight was at "dry weight" of 200lbs. STOP your metolazone Change bumex to 2mg twice a day (previsouly taking 2mg AM and 4mg PM) Weight yourself daily, if weight goes above 205lbs then take an extra bumex tab in the morning ( a total of 4mg) Follow-up with Dr Jonathan Mitchell at the [facility] on March 01 at 4pm. No Smoking: If you smoke, Please STOP! Call for help.
--- NOTE | 2017-02-23 11:12 | DISCHARGE SUMMARY ---
Discharge Summary Admit Date: 02/21/17 Condition at Discharge: Good Discharge Disposition: 01 Home, Self Care - DIAGNOSES Discharge Diagnoses with Status of Each Condition: 1. Metabolic acidosis due to volume contraction and overdiuresis, resolved 2. ISABELA with elevated BUN, resolved 3. Elevated AST and alkaline phosphotase, resolved 4. Leukocytosis, resolved 5. Constipation, improved 6. Hypertension, chronic, stable 7. Chronic atrial fibrillation with long-term anticoagulation on Coumadin and subtherapeutic INR 8. Type 2 diabetes mellitus, uncontrolled 9. Post traumatic stress disorder and depression, chronic and stable 10. Hyperlipidemia, chronic - HPI History of Present Illness: See H&P from 02/21/17 - HOSPITAL COURSE Hospital Course: (1) Metabolic acidosis due to volume contraction and over-diuresis. Presented with weakness and fatigue. Diagnosis evidenced by his low sodium, low chloride, elevated hgb, protein and albumin. In ER given 1L NS and continued NS @100. Weight up from 87kg to 90.3kg to 90.6kg today. Lungs remain clear. Electrolytes returning to normal range. Anion gap 16 down to 10. BUn down to 60s. Takin gPO well, actually eating everything in sight. Discussed diuretic regimen with him. He says he has a working scale at home. Instructed to weigh daily and record #. Stop metolazone. Change bumetanide to 2mg twice a day and if weight >210 then take 4mg in the morning. Will need close follow-up for volume management. (2) ISABELA with elevated BUN Last labs in 01/2017 with creat 1.8, BUN 54. Was 1.9/121 on admit. Likely acute kidney injury and uremia secondary to over-diuresis. With Coumadin, GIB less likely with negative hemoccult. Diuretics held, given fluids and responded well. Avoid nephrotoxic agents like NSAIDs in future. (3) Elevated AST and alkaline phosphatase Likely elevated due to his over-diuresis and stress. No elevation in past. No history of liver disease reported. CT abdomen and pelvic June 2015 without liver disease. AST and alk phos now WNL after hydration. (4) Leukocytosis On admission WBC 12.5, no evidence of infection, no pulmonary infiltrate, or urinary tract infection. He has constipation but no evidence of intra-abdominal infection. WBC now 7.3 with hydration only. (5) Constipation Acute on chronic constipation related to opioid use and inactivity. Likely acutely worsened by his dehydration. Has had multiple BMs in the last 24hrs. Conitnue PO colace and miralax at home. (6) Hypertension Normotensive in spite of his dehydration, continued his atenolol. (7) Chronic atrial fibrillation with long-term anticoagulation on Coumadin No reports of melena or hematochezia. Subtherapeutic INR 1.4, given 7.5mg x2 days and still 1.6. Will resume home regimen - 7.5mg again today then alternating with 5mg on . INR follow-up as outptatient. HR controlled. (8) Type 2 diabetes mellitus Complicated by neuropathy and nephropathy. On termite treater helper insulin use. Inconsistent diet at home, suspect not good access to DM friendly foods. Has eaten A LOT whiel inpatient. BG running high and insulin adjusted but will mainatin same home dose at [facility] since his diet will likely return to normal. (9) Post traumatic stress disorder and depression The patient's mood is currently stable. He is unsure why this is happening again , hopeful that he will recover similar to last event. Continue Celexa. (10) Hyperlipidemia No previous lipid panel available for review. Continue statin. - ALLERGIES Allergies/Adverse Reactions: Allergies Allergy/AdvReac Type Severity Reaction Status Date / Time codeine Allergy Respiratory Verified 02/21/17 10:17 omeprazole AdvReac Unknown Verified 02/21/17 10:17 - MEDICATIONS Home Medications: Ambulatory Orders Medication Instructions Recorded Confirmed Atenolol 25 mg PO DAILY 01/07/14 02/21/17 oxyCODONE [Roxicodone] 10 mg PO Q4HR PRN 04/09/16 02/21/17 Cholecalciferol (Vitamin D3) 1,000 unit PO DAILY 12/24/16 02/21/17 [Vitamin D3] Citalopram Hydrobromide [Celexa] 20 mg PO DAILY 12/24/16 02/21/17 Ipratropium/Albuterol [Combivent 1 puffs INH QID 12/24/16 02/21/17 Respimat] Loratadine [Claritin] 10 mg PO DAILY 12/24/16 02/21/17 Psyllium [Metamucil] 1 each PO DAILY 12/24/16 02/21/17 Sildenafil Citrate [Viagra] 100 mg PO QPM PRN 12/24/16 02/21/17 Atorvastatin Calcium [Lipitor] 80 mg PO QPM 02/21/17 02/21/17 Dextrose [Trueplus Glucose] 4 gm PO QID PRN 02/21/17 02/21/17 Insulin Aspart [NovoLOG] 10 unit SUBQ BIDWM 02/21/17 02/21/17 Insulin Glargine [Lantus Solostar] 55 unit SUBQ QPM 02/21/17 02/21/17 Magnesium Oxide 420 mg PO DAILYWM 02/21/17 02/21/17 Spironolactone [Aldactone] 25 mg PO DAILY 02/21/17 02/21/17 Warfarin [Coumadin] 5 mg PO MOWEFR@1700 02/21/17 02/21/17 Warfarin [Coumadin] 7.5 mg PO SUTUTHSA@1700 02/21/17 02/21/17 Bumetanide 2 mg PO BID #0 02/23/17 02/21/17 Docusate Sodium 250Mg Capsule 250 mg PO BID capsule 02/23/17 [Colace 250Mg Capsule] Magnesium Oxide [Mag Ox] 400 mg PO DAILYWM tablet 02/23/17 Polyethylene Glycol 3350 [Miralax] 17 gm PO DAILY packet 02/23/17 - PHYSICAL EXAM AT DISCHARGE General Appearance: positive: No acute distress, Alert Eyes Bilateral: positive: PERRL ENT: positive: No signs of dehydration Neck: positive: No JVD Respiratory: positive: Chest non-tender, No respiratory distress, Breath sounds nml Cardiovascular: positive: Irregularly irregular. negative: Tachycardia Peripheral Pulses: positive: 2+ Abdomen: positive: Non-tender, Nml bowel sounds, No distention Skin: positive: Color nml, Warm, Dry Extremities: positive: Non-tender, Full ROM, Nml appearance. negative: Pedal edema, Calf tenderness Neurologic/Psychiatric: positive: Oriented x3, Motor nml, Sensation nml, Mood/ affect nml - LABS Result Diagrams: 02/22/17 05:01 02/23/17 05:43 - FOLLOW UP Follow Up: Dr Jonathan Mitchell on March 01 at 4pm.
[2017-02-23] MEDS ORDERED: MAGNESIUM HYDROXIDE 2,400 MG/30 ML UDC PO PRN (11:13)
--- NOTE | 2017-02-23 11:33 | Discharge Plan ---
Discharge Plan Disposition: 01 Home, Self Care Condition: Good Activity Restrictions: Activity as Tolerated Additional Instructions or Follow Up instructions: You were admitted to the hospital for dehydration due to your diuretics for heart failure. You were given IV fluids until your BUN improved and weight was at "dry weight" of 200lbs. STOP your metolazone Change bumex to 2mg twice a day (previsouly taking 4mg AM and 2mg PM) Weight yourself daily, if weight goes above 210lbs then take an extra bumex tab in the morning (a total of 4mg) Hold bumex dose if weight less than 206lbs. Goal: weight 205-210lbs Follow-up with Dr Jonathan Mitchell at the [facility] on March 01 at 4pm. No Smoking: If you smoke, Please STOP! Call for help.
[2017-02-23] MEDS: MAGNESIUM HYDROXIDE 2,400 MG/30 ML UDC PO PRN (11:37)
[2017-02-23 12:38] VITALS: BP 103/61
== END 2017-02-23 13:43 | disposition home or self-care (01) | DRG 683 ==
LOC: ED 10:06 → MS 14:06
PROVIDERS: ADMIT Nurse Practitioner Acute Care; ATTEND Nurse Practitioner Acute Care
DX: N17.9 Acute kidney failure, unspecified (principal); E87.2 Acidosis; I13.0 Hypertensive heart and chronic kidney disease with heart failure and stage 1 through stage 4 chronic kidney disease, or unspecified chronic kidney disease; E87.1 Hypo-osmolality and hyponatremia; E86.0 Dehydration; E87.8 Other disorders of electrolyte and fluid balance, not elsewhere classified; T50.2X5A Adverse effect of carbonic-anhydrase inhibitors, benzothiadiazides and other diuretics, initial encounter; R74.8 Abnormal levels of other serum enzymes; D72.829 Elevated white blood cell count, unspecified; K59.00 Constipation, unspecified; I48.2 Chronic atrial fibrillation; I50.9 Heart failure, unspecified; E11.22 Type 2 diabetes mellitus with diabetic chronic kidney disease; N18.9 Chronic kidney disease, unspecified; E11.65 Type 2 diabetes mellitus with hyperglycemia; E11.40 Type 2 diabetes mellitus with diabetic neuropathy, unspecified; F43.12 Post-traumatic stress disorder, chronic; F32.9 Major depressive disorder, single episode, unspecified; I25.10 Atherosclerotic heart disease of native coronary artery without angina pectoris; E78.5 Hyperlipidemia, unspecified; K59.03 Drug induced constipation; F17.210 Nicotine dependence, cigarettes, uncomplicated; T40.60 Poisoning by, adverse effect of and underdosing of unspecified narcotics; Y92.029 Unspecified place in mobile home as the place of occurrence of the external cause; Z79.01 Long term (current) use of anticoagulants; Z79.891 Long term (current) use of opiate analgesic; Z79.4 Long term (current) use of insulin; Z79.899 Other long term (current) drug therapy
CPT/HCPCS: 36415; 74022; 80053; 80320; 81001; 81003; 82270; 82550; 83036; 83690; 83880; 84484; 85025; 85610; 87086; 96360; 96361; 99284; 99285